=== PATIENT | male | born 1975 | race Caucasian/White ===

== ENCOUNTER 2016-08-06 10:25 | Emergency (ER) | payer SELFPAY ==
[2016-08-06] MEDS ORDERED: DIPHTH,PERTUSS(ACELL),TET 0.5 ML DISP.SYRIN IM ONE (10:30)
--- NOTE | 2016-08-06 10:46 | PDOC ---
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 Minimal pain and not UTD with Tetanus. Bleeding. Able to move leg. Brought in by co-worker. No fever or chills. Occurred this morning. Severity: mild Past History - Past Medical History Allergies/Adverse Reactions: Allergies Allergy/AdvReac Type Severity Reaction Status Date / Time No Known Allergies Allergy Verified 08/06/16 10:26 Home Medications: Ambulatory Orders Cephalexin Monohydrate [Keflex -] 500 mg PO Q8H #15 capsule 08/06/16 Other medical history: DENIES - Psycho/Social/Smoking Cessation Hx Anxiety: No Suicidal Ideation: No Smoking History: Never smoked Hx Alcohol Use: No Drug/Substance Use Hx: No Review of Systems - Review of Systems Able to Perform ROS?: Yes Is the patient limited Turkish proficient: Yes Constitutional: No: Chills, Fever Respiratory: No: Cough, Shortness of Breath Cardiac (ROS): No: Chest Pain Neurological: No: Headache, Numbness, Paresthesia All Other Systems: Reviewed and Negative *Physical Exam - Vital Signs Last Vital Signs Temp Pulse Resp BP Pulse Ox 98.1 F 89 18 138/77 100 08/06/16 10:25 08/06/16 10:25 08/06/16 10:25 08/06/16 10:25 08/06/16 10:25 - Physical Exam General Appearance: Yes: Nourished, Appropriately Dressed. No: Apparent Distress HEENT: positive: KATJA, Normal ENT Inspection, Normal Voice Neck: positive: Trachea midline, Supple Respiratory/Chest: positive: Lungs Clear, Normal Breath Sounds Cardiovascular: positive: Regular Rhythm, Regular Rate, S1, S2 Vascular Pulses: Femoral (R): 4+, Femoral (L): 4+, Carotid (R): 4+, Carotid (L) : 4+, Dorsalis-Pedis (R): 4+, Doralis-Pedis (L): 4+ Lymphatic: negative: Adenopathy, Tenderness, Other Musculoskeletal: positive: Normal Inspection. negative: CVA Tenderness Extremity: positive: Normal Capillary Refill, Normal Range of Motion (full ROM of right knee and right ankle, no abrasion or laceration to knee, abrasion down rigth anterior leg as well). negative: Normal Inspection (right lower extremity with fullROM, v-shaped laceration below knee, full ROM at knee noted, hematoma below laceration, bleeding controlled, pulses 2+/4 b/l in LE, no compartment syndrome noted), Swelling, Calf Tenderness Integumentary: positive: Normal Color, Dry, Warm, Swelling, Ecchymosis. 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 Area cleaned with betadine and saline, no foreign body seen 4 cc 1 % Lidocaine injected into wound edges Under sterile conditions, 7 4-0 Nylon placed, area approximated well. Pt tolerated procedure, area covered and Bacitracin placed on wound Will place pt on Keflex Tetanus given Remove sutures in 10 days If worsen return to ER 08/06/16 12:17 Right tib/fib x ray discussed with radiologist ? foreign body below patella, however no injury to skin or knee on exam. Most likely old. - RADIOLOGY Radiology Studies Ordered: Category Date Time Status LEG TIB/FIB-RIGHT [RAD] Stat Radiology 08/06/16 10:32 Ordered 08/06/16 12:17 X-ray right tib/fib no fracture seen *DC/Admit/Observation/Transfer Diagnosis at time of Disposition: Laceration of lower extremity Qualifiers: Encounter type: initial encounter Laterality: right Qualified Code(s): S81.811A - Laceration without foreign body, right lower leg, initial encounter - Discharge Dispostion Disposition: HOME Condition at time of disposition: Good Admit: No - Patient Instructions Printed Discharge Instructions: DI for Laceration Repair -- Simple Additional Instructions: Ice, Motrin, rest, elevate leg Keflex 500mg 3x/day for 5 days Remove sutures in 10 days If worsen return to ER
[2016-08-06 10:51] VITALS: BP 138/77; PULSE 89; TEMP 98.1; BMI 32.3
== END 2016-08-06 12:35 | disposition home or self-care (01) ==
LOC: FER 10:25
PROC: 0HQKXZZ Repair Right Lower Leg Skin, External Approach (ICD-10-PCS; principal; 2016-08-06)
PROC: 3E0234Z Introduction of Serum, Toxoid and Vaccine into Muscle, Percutaneous Approach (ICD-10-PCS; 2016-08-06)
DX: S81.811A Laceration without foreign body, right lower leg, initial encounter (principal); W20.8XXA Other cause of strike by thrown, projected or falling object, initial encounter; Y93.89 Activity, other specified; Y92.9 Unspecified place or not applicable
CPT/HCPCS: 73590-TC-RT; 90715; 99283-25